=== PATIENT | male | born 1980 | race Caucasian/White ===

== ENCOUNTER 2016-06-14 10:05 | Outpatient (CLI) ==
[2016-03-29 10:24] VITALS: BMI 33.7
--- NOTE | 2016-06-14 10:39 | DI ---
EXAM: Chest two views CLINICAL INDICATION: Shortness of breath. COMPARISON: 03/14/2016. FINDINGS: PA and lateral views of the thorax are provided. The pulmonary parenchyma is clear and there is no pleural abnormality. The cardiomediastinal silhou ette and visualized bony structures are unchanged with evidence of prior cervical surgery. IMPRESSION: No interval change, with no acute pulmonary abnormality.
== END 2016-06-14 10:06 | disposition home or self-care (01) ==
LOC: RAD 10:05
PROVIDERS: ATTEND Nurse Practitioner Family
DX: R09.89 Other specified symptoms and signs involving the circulatory and respiratory systems (principal)

== ENCOUNTER 2016-08-09 10:20 | Outpatient (CLI) ==
[2016-03-29 10:24] VITALS: BMI 33.7
[2016-08-09 10:47] LABS: FLU INTERNAL QC INTERNAL QC VALID; RAPID FLU A NEGATIVE (NEGATIVE); RAPID FLU B NEGATIVE (NEGATIVE)
== END 2016-08-09 10:21 | disposition home or self-care (01) ==
LOC: LAB 10:20
PROVIDERS: ATTEND Nurse Practitioner Family
DX: J01.90 Acute sinusitis, unspecified (principal); F17.200 Nicotine dependence, unspecified, uncomplicated; Z91.89 Other specified personal risk factors, not elsewhere classified
CPT/HCPCS: 87651; 87804; 87880

== ENCOUNTER 2016-08-24 12:10 | Outpatient (CLI) ==
[2016-03-29 10:24] VITALS: BMI 33.7
[2016-08-24 12:50] LABS: FLU INTERNAL QC INTERNAL QC VALID; RAPID FLU A NEGATIVE (NEGATIVE); RAPID FLU B NEGATIVE (NEGATIVE)
== END 2016-08-24 12:11 | disposition home or self-care (01) ==
LOC: LAB 12:10
PROVIDERS: ATTEND Nurse Practitioner Family
DX: R52 Pain, unspecified (principal); J02.9 Acute pharyngitis, unspecified; R05 Cough
CPT/HCPCS: 87651; 87804; 87880

== ENCOUNTER 2016-10-23 07:19 | Outpatient (CLI) ==
[2016-03-29 10:24] VITALS: BMI 33.7
[2016-10-23 07:28] LABS: BASOPHILS # (AUTO) 0.1 K/uL (0-0.2); BASOPHILS % (AUTO) 1.1 % (0.0-3.0); EOSINOPHILS # (AUTO) 0.6 K/ul (0.0-0.7); EOSINOPHILS % (AUTO) 6.7 % (0.0-7.0); HEMATOCRIT 42.9 % (42.0-52.0); IMMATURE GRANULOCYTE % (AUTO) 0.9 % (0.0-5.0); LYMPHOCYTES # (AUTO) 3.4 K/uL (0.60-3.4); LYMPHOCYTES % (AUTO) 35.4 (10.0-50.0); MEAN CORPUSCULAR HEMOGLOBIN 29.8 pg (27.0-31.0); MEAN CORPUSCULAR VOLUME 85.1 fl (80.0-94.0); MONOCYTES # (AUTO) 0.9 K/uL (0.4-2.0); MONOCYTES % (AUTO) 9.6 (0-10); NEUTROPHILS # (AUTO) 4.4 K/ul (2.0-6.9); NEUTROPHILS % (AUTO) 46.3; PLATELET COUNT 218 10^3/uL (140-440); RED BLOOD COUNT 5.04 10^6/ul (4.70-6.10); WHITE BLOOD COUNT 9.49 K/ul (4.2-10.2)
[2016-10-23 08:26] LABS: ALBUMIN 3.7 g/dL (3.4-5.0); ALBUMIN/GLOBULIN RATIO 1.28; ANION GAP 11.9; BILIRUBIN,TOTAL 0.33 mg/dL (0.00-1.20); BUN/CREATININE RATIO 16.49; CALCIUM 9.4 mg/dL (8.2-10.2); CHOL/HDL RATIO 6.1 (4.5-6.4); CREATININE 0.97 mg/dL (0.60-1.10); POTASSIUM 3.9 mmol/L (3.5-5.1); TOTAL PROTEIN 6.6 g/dL (6.4-8.2)
== END 2016-10-23 07:20 | disposition home or self-care (01) ==
LOC: LAB 07:19
PROVIDERS: ATTEND Nurse Practitioner Family
DX: E78.1 Pure hyperglyceridemia (principal); I10 Essential (primary) hypertension; K27.9 Peptic ulcer, site unspecified, unspecified as acute or chronic, without hemorrhage or perforation; Z82.49 Family history of ischemic heart disease and other diseases of the circulatory system
CPT/HCPCS: 36415; 80053; 80061; 84439; 85025

== ENCOUNTER 2016-12-01 07:14 | Outpatient (CLI) ==
[2016-03-29 10:24] VITALS: BMI 33.7
== END 2016-12-01 07:15 | disposition home or self-care (01) ==
LOC: LAB 07:14
PROVIDERS: ATTEND Nurse Practitioner Family
DX: E78.1 Pure hyperglyceridemia (principal)
CPT/HCPCS: 36415; 80061

== ENCOUNTER 2016-12-04 09:55 | Outpatient (CLI) ==
[2016-03-29 10:24] VITALS: BMI 33.7
--- NOTE | 2016-12-04 10:26 | DI ---
Exam: Chest two-view HISTORY: "Pure hyperglyceridemia". Comparison: 06/14/2016. FINDINGS: Two views of the chest demonstrate moderately expanded lungs with no evidence of pneumoni a or edema. The heart is normal in size and configuration. The pulmonary vasculature is not conges jo-ann. The skeletal structures are intact. Mild degenerative findings are noted in the spine. ACDF h ardware is noted over the lower cervical spine. IMPRESSION: No acute cardiopulmonary disease.
== END 2016-12-04 09:56 | disposition home or self-care (01) ==
LOC: RAD 09:55
PROVIDERS: ATTEND Nurse Practitioner Family
DX: E78.1 Pure hyperglyceridemia (principal); I10 Essential (primary) hypertension; Z82.49 Family history of ischemic heart disease and other diseases of the circulatory system
CPT/HCPCS: 93005; 93010

== ENCOUNTER 2017-01-16 13:12 | Outpatient (CLI) ==
[2016-03-29 10:24] VITALS: BMI 33.7
[2017-01-16 13:52] LABS: ALBUMIN 3.7 g/dL (3.4-5.0); ALBUMIN/GLOBULIN RATIO 1.37; ANION GAP 15.6; BILIRUBIN,TOTAL 0.25 mg/dL (0.00-1.20); BUN/CREATININE RATIO 10.97; CALCIUM 9.5 mg/dL (8.2-10.2); CHOL/HDL RATIO 6.1 (4.5-6.4); CREATININE 0.82 mg/dL (0.60-1.10); POTASSIUM 3.6 mmol/L (3.5-5.1); TOTAL PROTEIN 6.4 g/dL (6.4-8.2)
== END 2017-01-16 13:13 | disposition home or self-care (01) ==
LOC: LAB 13:12
PROVIDERS: ATTEND Nurse Practitioner Family
DX: E78.1 Pure hyperglyceridemia (principal)
CPT/HCPCS: 36415; 80053; 80061

== ENCOUNTER 2017-01-18 12:43 | Outpatient (CLI) ==
[2016-03-29 10:24] VITALS: BMI 33.7
[2017-01-18] MEDS ORDERED: ALBUTEROL 0.083% NEB NEB SCH (13:30)
== END 2017-01-18 12:44 | disposition home or self-care (01) ==
LOC: CAR 12:43
PROVIDERS: ATTEND Nurse Practitioner Family
DX: Z72.0 Tobacco use (principal)

== ENCOUNTER 2017-03-30 07:30 | Outpatient (CLI) ==
[2016-03-29 10:24] VITALS: BMI 33.7
[2017-03-30 07:55] LABS: BASOPHILS # (AUTO) 0.1 K/uL (0-0.2); BASOPHILS % (AUTO) 1.1 % (0.0-3.0); EOSINOPHILS # (AUTO) 0.5 K/ul (0.0-0.7); EOSINOPHILS % (AUTO) 5.9 % (0.0-7.0); HEMATOCRIT 43.8 % (42.0-52.0); HEMOGLOBIN 15.6 g/dl (14.0-18.0); IMMATURE GRANULOCYTE % (AUTO) 0.9 % (0.0-5.0); LYMPHOCYTES # (AUTO) 2.7 K/uL (0.60-3.4); LYMPHOCYTES % (AUTO) 33.7 (10.0-50.0); MEAN CORPUSCULAR HGB CONC 35.6 (31.8-35.4); MEAN CORPUSCULAR VOLUME 84.2 fl (80.0-94.0); MONOCYTES # (AUTO) 0.7 K/uL (0.4-2.0); MONOCYTES % (AUTO) 8.1 (0-10); NEUTROPHILS % (AUTO) 50.3; PLATELET COUNT 248 10^3/uL (140-440); WHITE BLOOD COUNT 8.01 K/ul (4.2-10.2)
[2017-03-30 08:12] LABS: ALBUMIN 3.7 g/dL (3.4-5.0); ALBUMIN/GLOBULIN RATIO 1.23; BILIRUBIN,TOTAL 0.34 mg/dL (0.00-1.20); BUN/CREATININE RATIO 15.18; CALCIUM 9.6 mg/dL (8.2-10.2); CHOL/HDL RATIO 3.9 (4.5-6.4); CREATININE 0.79 mg/dL (0.60-1.10); TOTAL PROTEIN 6.7 g/dL (6.4-8.2)
== END 2017-03-30 07:31 | disposition home or self-care (01) ==
LOC: LAB 07:30
PROVIDERS: ATTEND Nurse Practitioner Family
DX: E78.1 Pure hyperglyceridemia (principal)
CPT/HCPCS: 36415; 80053; 80061; 85025

== ENCOUNTER 2017-04-02 19:16 | Emergency (ER) ==
[2017-04-02 19:21] VITALS: BP 127/81; TEMP 97.3; BMI 5409.2
[2017-04-02 19:56] LABS: BASOPHILS # (AUTO) 0.1 K/uL (0-0.2); BASOPHILS % (AUTO) 1.5 % (0.0-3.0); EOSINOPHILS # (AUTO) 0.4 K/ul (0.0-0.7); EOSINOPHILS % (AUTO) 4.8 % (0.0-7.0); HEMATOCRIT 41.2 % (42.0-52.0); HEMOGLOBIN 14.5 g/dl (14.0-18.0); IMMATURE GRANULOCYTE % (AUTO) 1.1 % (0.0-5.0); LYMPHOCYTES # (AUTO) 3.5 K/uL (0.60-3.4); MEAN CORPUSCULAR HEMOGLOBIN 29.6 pg (27.0-31.0); MEAN CORPUSCULAR HGB CONC 35.2 (31.8-35.4); MEAN CORPUSCULAR VOLUME 84.1 fl (80.0-94.0); MONOCYTES # (AUTO) 0.8 K/uL (0.4-2.0); MONOCYTES % (AUTO) 8.7 (0-10); NEUTROPHILS % (AUTO) 44.9; PLATELET COUNT 228 10^3/uL (140-440); WHITE BLOOD COUNT 8.87 K/ul (4.2-10.2)
--- NOTE | 2017-04-02 20:03 | CT ---
EXAM: CT scan of the head without contrast HISTORY: Headache, high blood pressure TECHNIQUE: Imaging of the head was performed without contrast. 5 mm thin axial images and coronal a nd sagittal images were provided for interpretation. FINDINGS: The ware-white interface appears normal. The lateral ventricles and cortical sulci are no rmal. The basal cisterns are patent. The paranasal sinuses and mastoid air cells are clear. The ca lvarium and extracranial soft tissues are normal. IMPRESSION: No acute intracranial abnormalities are seen.
[2017-04-02 20:20] LABS: BILIRUBIN,URINE Negative (NEGATIVE); KETONES,URINE Negative (NEGATIVE); LEUKOCYTE ESTERASE ,URINE Negative (NEGATIVE); NITRITE,URINE Negative (NEGATIVE); PH,URINE 7.5 (5-9); PROTEIN,URINE Negative (NEGATIVE); URINE, BLOOD Negative (NEGATIVE)
[2017-04-02 20:22] LABS: ALBUMIN 3.9 g/dL (3.4-5.0); ALBUMIN/GLOBULIN RATIO 1.34; ANION GAP 13.7; BILIRUBIN,TOTAL 0.37 mg/dL (0.00-1.20); BUN/CREATININE RATIO 12.37; CALCIUM 9.7 mg/dL (8.2-10.2); CREATININE 0.97 mg/dL (0.60-1.10); POTASSIUM 3.7 mmol/L (3.5-5.1); TOTAL PROTEIN 6.8 g/dL (6.4-8.2)
[2017-04-02 20:30] LABS: ADD URINE MICROSCOPIC YES
[2017-04-02 20:31] LABS: BACTERIA,URINE TRACE (NOT PRESENT)
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
[2017-04-02 20:56] LABS: CREATINE KINASE 483 U/L
[2017-04-02 20:58] LABS: CREATINE KINASE MB 7.9 ng/ml (0.0-3.6)
== END 2017-04-02 21:11 | disposition home or self-care (01) ==
LOC: ED 19:16
DX: I10 Essential (primary) hypertension (principal); R51 Headache
CPT/HCPCS: 36415; 80053; 81001; 82550; 82553; 84484; 85025; 93005; 93010; 99284

== ENCOUNTER 2017-06-29 06:57 | Outpatient (CLI) | END 2017-06-29 06:58 | disposition home or self-care (01) | LOC: LAB 06:57 | PROVIDERS: ATTEND Nurse Practitioner Family | DX: E78.1 Pure hyperglyceridemia (principal); I10 Essential (primary) hypertension | CPT/HCPCS: 36415; 80053; 80061 ==

== ENCOUNTER 2017-08-23 14:48 | Outpatient (CLI) ==
--- NOTE | 2017-08-23 15:23 | DI ---
EXAM: Right knee four views HISTORY: Pain in right knee COMPARISON: None FINDINGS: The bones are normal. The medial, lateral, and patellofemoral compartments are normal in h eight. No joint effusion. IMPERSSION: Normal examination.
== END 2017-08-23 14:49 | disposition home or self-care (01) ==
LOC: RAD 14:48
PROVIDERS: ATTEND Nurse Practitioner Family
DX: M25.561 Pain in right knee (principal)

== ENCOUNTER 2017-09-28 06:46 | Outpatient (CLI) | END 2017-09-28 06:47 | disposition home or self-care (01) | LOC: LAB 06:46 | PROVIDERS: ATTEND Nurse Practitioner Family | DX: E78.1 Pure hyperglyceridemia (principal); K27.9 Peptic ulcer, site unspecified, unspecified as acute or chronic, without hemorrhage or perforation; I10 Essential (primary) hypertension | CPT/HCPCS: 36415; 80053; 80061; 85025 ==

== ENCOUNTER 2017-10-19 06:35 | Outpatient (CLI) ==
[2017-10-19] MEDS ORDERED: DOBUTAMINE 250 ML IV ONE (07:36)
[2017-10-19] MEDS ORDERED: ATROPINE SULFATE PFS ONE (07:36)
--- NOTE | 2017-10-19 10:31 | NM ---
EXAM: Myocardial perfusion imaging HISTORY: Abnormal stress echo COMPARISON: None. TECHNIQUE: Patient was injected 3.6 mCi of thallium 201 chloride intravenously while at rest. SPECT imaging of the heart was acquired. Patient was stressed using dobutamine protocol and injected 24.2 mCi of Tc99m Sestamibi intravenously. Another SPECT imaging of the heart was then acquired. Gated c ardiac study was also performed. FINDINGS: Post stress images show dilated left ventricular cavity. Reduced perfusion is noted involv ing inferior apical segment of the left ventricle which shows reperfusion on delayed imaging. Also i dentified is a mildly reduced perfusion involving mid-anterior wall which also shows reperfusion on d elayed imaging. Left ventricular ejection fraction is 55%. Inferior wall is hypokinetic. IMPRESSION: 1. SPECT myocardial imaging demonstrates reversible ischemia involving mid-anterior wall and inferio r apical segment of the left ventricle. 2. Dilated left ventricle with normal ejection fraction of 55%. Hypokinetic inferior wall.
--- NOTE | 2017-10-22 12:10 | DOBSTECHST ---
Ordering Physician: MIYA ROBERTS APRN Date of Test: 10/19/17 Occupation: Reason for Examination: LEFT ARM PAIN, ATRIAL ENLARGEMENT Smoking History : Height: 72" Weight: 267 LBS Current Medications: PANTOPRAZOLE, LOSARTAN, FENOFIBRATE, ATORVASTATIN, SYMBICORT, CYCLOBENZAPRINE, Target Heart Rate: 153/181 S-T Segment Stage Time HR BPM BP mmhg Rhythm +/- Elevation Depression Comments/ Symptoms Control Sitting 51 128/62 SR X NONE Dobutamine 250mg/D5W 5cmg/KG/mn 10cmg/KG/mn 3:00 57 136/70 SR X NONE 15cmg/KG/mn 2:00 64 156/74 SR X NONE 20cmg/KG/mn 2:00 71 174/76 SR X NONE 25cmg/KG/mn 2:00 82 188/74 SR X NONE 30cmg/KG/mn 2:00 93 192/70 SR X .25 ATROPINE 35cmg/KG/mn 2:00 103 SR X NONE 40cmg/KG/mn 1:59 112 198/68 SR X NONE Time: 2:30 HR B/P Time: 5:00 HR B/P Time: HR B/P Recovery 84 162/58 Recovery 71 156/58 Recovery Total Time: 14:59 HIGHEST HR REACHED: 112 BPM 95% OXYGEN SATURATION AT REST ON ROOM AIR Interpretation: 1. NO EVIDENCE OF ISCHEMIA FROM HEART RATE OF 50 BPM TO 112 BPM 2. NO CHEST PAIN OR DISCOMFORT 3. NORMAL LEFT VENTRICULAR CONTRACTILITY--RESTING AND WITH DOBUTAMINE INFUSION SESTAMIBI TO FOLLOW MTDD
--- NOTE | 2017-10-22 12:12 | ECHOSTRESS ---
Date of Exam: 10/19/17 Ordering Physician: MIYA ROBERTS APRN Reason for Echo: LEFT ARM PAIN, ABNORMAL STRESS, ATRIAL ENLARGEMENT, DOBUTAMINE STRESS--NORMAL M-Mode Normal Adult Results LV Dimensions Normal Adult Results AoV Opening excursions >1.6 LVEDD-base- 3.5-5.8 Ao root dimensions 2.0-3.7 LVESD-base- 3.1-4.6 L. Atrium dimensions 1.9-3.8 Post. Wall thickness 0.8-1.1 IV septum (thickness) 0.7-1.2 Post. Wall excursion 0.72-1.3 Septal motion Systolic motion R. Ventricular cavity 1.5-2.0 LVEF 60% Paradoxical septal wall motion 2-D: NORMAL LEFT VENTRICULAR CONTRACTILITY--RESTING AND WITH DOBUTAMINE INFUSION M-MODE: MV: AV: TV: PV: CHAMBER SIZE: WALL MOTION: NORMAL LEFT VENTRICULAR CONTRACTILITY--RESTING AND WITH DOBUTAMINE INFUSION PERICARDIUM: INTERPRETATION: 1. NORMAL LEFT VENTRICULAR CONTRACTILITY--RESTING AND WITH DOBUTAMINE INFUSION SESTAMIBI TO FOLLOW MTDD
== END 2017-10-19 06:36 | disposition home or self-care (01) ==
LOC: CAR 06:35
PROVIDERS: ATTEND Nurse Practitioner Family
DX: I51.7 Cardiomegaly (principal); R94.39 Abnormal result of other cardiovascular function study

== ENCOUNTER 2018-05-11 17:13 | Emergency (ER) ==
[2018-05-11 17:21] VITALS: BP 136/78; TEMP 98.3; BMI 35.2
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
== END 2018-05-11 17:41 | disposition home or self-care (01) ==
LOC: ED 17:13
DX: J02.9 Acute pharyngitis, unspecified (principal); R50.9 Fever, unspecified; R07.0 Pain in throat
CPT/HCPCS: 87502; 87651; 99283

== ENCOUNTER 2018-06-01 12:09 | Emergency (ER) ==
[2018-06-01 12:20] VITALS: BP 145/73; TEMP 97.2; BMI 35.1
[2018-06-01] MEDS ORDERED: ALBUTEROL 0.083% NEB NEB STA (13:16)
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
--- NOTE | 2018-06-01 16:02 | DI ---
EXAM: Chest two view. HISTORY: Cough. COMPARISON: 12/04/2016. FINDINGS: The cardiac silhouette appears normal. No focal consolidation or pneumonia is seen. No p leural fluid is seen. Postsurgical changes seen cervical spine IMPRESSIONS: There is no active cardiopulmonary disease.
== END 2018-06-01 15:17 | disposition home or self-care (01) ==
LOC: ED 12:09
DX: J06.9 Acute upper respiratory infection, unspecified (principal)
CPT/HCPCS: 36415; 80053; 81001; 85025; 87070; 87502; 87651; 94640; 99283

== ENCOUNTER 2018-09-25 15:26 | Outpatient (CLI) ==
--- NOTE | 2018-09-25 16:34 | US ---
EXAM: Ultrasound venous Doppler right lower extermity HISTORY: Pain in right lower leg COMPARISON: None TECHNIQUE: Venous duplex ultrasound of the right lower extremity was performed using color, ware-sca le, and Doppler flow imaging. FINDINGS: There is normal color flow and compression of the right common femoral, greater saphenous, profunda femoral, femoral, popliteal, peroneal, posterior tibial, and anterior tibial veins without evidence of intraluminal thrombus. IMPRESSION: No right lower extremity deep venous thrombosis.
--- NOTE | 2018-09-25 16:52 | DI ---
EXAM: Right heel, two-view HISTORY: Pain in right foot COMPARISON: The FINDINGS: No fracture or dislocation. Small plantar and posterior calcaneal spurs. Small benign-shweta earing sclerotic focus distal tibia may reflect a small bone island or an ossified non-ossifying fibr katie. No focal soft tissue abnormality. IMPERSSION: Small calcaneal spurs.
== END 2018-09-25 15:27 | disposition home or self-care (01) ==
LOC: RAD 15:26
PROVIDERS: ATTEND Family Medicine
DX: M79.661 Pain in right lower leg (principal); Z86.718 Personal history of other venous thrombosis and embolism